=== PATIENT | female | born 1960 | race Caucasian/White ===

== ENCOUNTER → 2019-06-06 17:45 | Outpatient (CLI) | payer OTHER, SELFPAY ==
--- NOTE | ~2019-06-06 | MM_ITS ---
EXAMINATION: MM screening alan BI w john HISTORY: Screening mammogram TECHNIQUE: Craniocaudal and mediolateral oblique 3-D tomosynthesis images were obtained and synthetic 2-D images were generated. CAD analysis was submitted and interpreted. COMPARISON: 05/16/2018, 04/25/2017, 03/31/2016 bilateral digital screening mammogram examinations BREAST PARENCHYMAL COMPOSITION: There are scattered areas of fibroglandular density. FINDINGS: Bilateral benign calcifications. There is no evidence of suspicious mass, calcification, or architectural distortion to suggest malignancy in either breast. There has been no suspicious interv al change. IMPRESSION: 1. No mammographic evidence of malignancy. 2. Recommend routine screening mammography in one year. BI-RADS Category 2: Benign finding(s). Reviewed, dictated and finalized at location A. B[employer] STRAIGHTENER
== END ==
PROVIDERS: PCP Internal Medicine; Visit Provider Nurse Practitioner
DX: Z12.31 Encounter for screening mammogram for malignant neoplasm of breast (principal)
CPT/HCPCS: 77063; 77067

== ENCOUNTER 2019-12-30 05:38 | Inpatient (IN) | payer OTHER, SELFPAY ==
[2019-12-30] VITALS (34 sets, daily range): BP systolic 127–188; BP diastolic 47–92; PULSE 47–113; RESP 10–35; TEMP 35.9–36.6; O2SAT 93–100; BMI 30.9
--- NOTE | ~2019-12-30 | US_ITS ---
EXAMINATION: US right upper quadrant DATE: 12/30/2019 07:54 INDICATION: Epigastric pain TECHNIQUE: Multiple grayscale and Doppler ultrasound images of the abdomen were obtained. COMPARISON: 01/14/2009 FINDINGS: The head and and body of the pancreas are normal. The pancreatic tail is obscured by bowel gas. The liver is normal with normal echogenicity and echotexture. No surface nodularity. Normal hepa topetal flow in the main portal vein. There is mild gallbladder distention. No stones are identified. There is a questionable focal area of gallbladder wall thickening. The normal common bile duct measu res 4 mm. There was no sonographic Levin sign. IMPRESSION: 1. Gallbladder distention with possible focal area of gallbladder wall thickening of unclear signific ance. Consider nuclear hepatobiliary scan. Reviewed, dictated and finalized at location A. IMPRESSION: 1. Gallbladder distention with possible focal area of gallbladder wall thickeni ng of unclear significance. Consider nuclear hepatobiliary scan.
--- NOTE | ~2019-12-30 | NM_ITS ---
EXAMINATION: NM hepatobiliary w pharm DATE: 12/31/2019 15:00 INDICATION: Gallbladder distention COMPARISON: None. TECHNIQUE: 5.2 mCi Tc-99m mebrofenin (Choletec) was administered intravenously. Scintigraphic images of the abdomen were obtained for one hour. 2 mcg morphine (Kinevac) was administered by slow intrave nous infusion, and imaging was continued for 30 minutes. FINDINGS: There is normal clearance of radiotracer from the blood pool. There is homogeneous tracer uptake by t he liver. Activity progresses to the common bile duct and bowel with duodenal activity evident at 15 minutes. There is progressive transit of activity into the small bowel but no evident accumulation o f activity in the gallbladder following the initial hour as well as 30 minutes post morphine injectio n which would be consistent with acute cholecystitis. IMPRESSION: 1. No evident gallbladder activity consistent with acute cholecystitis. Reviewed, dictated and finalized at location B.
--- NOTE | ~2019-12-30 | XR_ITS ---
EXAMINATION: XR chest 2V DATE: 12/30/2019 06:23 INDICATION: Epigastric pain TECHNIQUE: PA and lateral views of the chest are obtained. COMPARISON: None available FINDINGS: The lungs are free of acute opacities. There is no pleural effusion or pneumothorax. The ca rdiomediastinal silhouette is normal. There is mild thoracic spondylosis. IMPRESSION: 1. No acute cardiopulmonary abnormality. Reviewed, dictated and finalized at location A.
--- NOTE | 2019-12-30 05:55 | ED.GENADULT ---
HPI - General Adult General Chief complaint: Chest Pain <Ham Wilkins MD - Last Filed: 12/30/19 06:54> Stated complaint: CP SINCE MN <Ham Wilkins MD - Last Filed: 12/30/19 06:54> Time Seen by Provider: 12/30/19 05:45 <Ham Wilkins MD - Last Filed: 12/30/19 06:54> History of Present Illness HPI narrative: Patient is a 59-year-old female who presents ER with epigastric pain. Began at midnight. It starts in her back and radiates to her epigastrium. She has had this intermittently for the last year. She had an EGD 6 months ago which did not reveal any significant source of the discomfort. Associate with some nausea and some sweats. No shortness of breath. No exertional component. Usually the pain will last until she takes a pain pill. She took a half Vicodin tonight which did not alleviate her discomfort. <Ham Wilkins MD - Last Filed: 12/30/19 06:54> Related Data Home medications: Home Medications Medication Instructions Recorded Confirmed fluticasone propionate 50 2 spray NASAL DAILY 04/16/19 05/15/19 mcg/actuation nasal spray,suspension bolnpdey-sjynv-qkrso-CF borate 1 tablet PO DAILY 05/15/19 05/15/19 [[facility]] loratadine [Claritin] 10 mg PO DAILY 05/15/19 05/15/19 <Ham Wilkins MD - Last Filed: 12/30/19 06:54> Allergies/adverse reactions: Allergies Allergy/AdvReac Type Severity Reaction Status Date / Time No Known Allergies Allergy Verified 12/30/19 05:48 <Ham Wilkins MD - Last Filed: 12/30/19 06:54> Review of Systems Review of Systems: All systems reviewed & are unremarkable except as noted in HPI and below <Ham Wilkins MD - Last Filed: 12/30/19 06:54> Constitutional: Constitutional: Denies chills, Denies fever(s) and Denies weakness <Ham Wilkins MD - Last Filed: 12/30/19 06:54> ENT: Denies nasal congestion and Denies sore throat <Ham Wilkins MD - Last Filed: 12/30/19 06:54> Cardiovascular: Cardiovascular: Denies chest pain and Denies radiating jaw, neck or arm pain <Ham Wilkins MD - Last Filed: 12/30/19 06:54> Respiratory: Respiratory: Denies cough, Denies dyspnea and Denies wheezing <Ham Wilkins MD - Last Filed: 12/30/19 06:54> Gastrointestinal: Gastrointestinal: Reports abdominal pain, Reports nausea and Denies vomiting <Ham Wilkins MD - Last Filed: 12/30/19 06:54> Genitourinary: Genitourinary: Denies hematuria, Reports nocturia and Denies dysuria <Ham Wilkins MD - Last Filed: 12/30/19 06:54> PMFSH Past Medical History Medical History: Medical History (Updated 12/30/19 @ 08:24 by Gloria Mallory MD) Adult hypothyroidism Epigastric pain Hypertension <Ham Wilkins MD - Last Filed: 12/30/19 06:54> Surgical History Surgical History: Surgical History (Updated 12/30/19 @ 05:57 by Ham Wilkins MD) History of esophagogastroduodenoscopy (EGD) <Ham Wilkins MD - Last Filed: 12/30/19 06:54> Family History Family History: Family History (Updated 03/29/15 @ 00:58 by DOCTOR UNKNOWN) Father Malignant neoplasm of prostate Other Diabetes mellitus Family history of arthritis Family history of gout Hypertension <Ham Wilkins MD - Last Filed: 12/30/19 06:54> Social History Social History: Social History Smoking status: Never smoker Alcohol intake: current <Ham Wilkins MD - Last Filed: 12/30/19 06:54> Exam Narrative: Exam Narrative: GENERAL: Uncomfortable-appearing, well-nourished, and in no acute distress. HEAD: Normocephalic, atraumatic. ENT: Mucous membranes moist. CHEST: Clear to auscultation. No respiratory distress. HEART: Bradycardic and regular. Normal peripheral pulses. ABDOMEN: Soft, mild epigastric tenderness without guarding, nondistended, normal active bowel sounds. EXTREMITIES: Normal range of motion. No edema. NEURO: Alert and oriented x3. PSYCH:
[2019-12-30] MEDS: ONDANSETRON INJ 4 MG/2 ML VIAL IV PUSH ×3 (05:57→16:46)
[2019-12-30] MEDS: MORPHINE SULFATE 4 MG/ML INJ IV PUSH ×4 (05:57→12:57)
--- NOTE | 2019-12-30 05:57 | ECG_ITS ---
Measurements Intervals [place] Rate: 57 P: 16 [place]: 161 QRS: 26 QRSD: 86 T: 42 QT: 423 QTc: 413 Interpretive Statements SINUS BRADYCARDIA BASELINE ARTIFACT- V4 BORDERLINE ECG Electronically Signed On 12-30-2019 6:51:50 CDT by Rick Bob D.O.
[2019-12-30 06:04] LABS: Basophils Absolute Auto 0.1 K/mm3 (0.0-0.1); Basophils Percent Auto 0.7 % (0.2-1.2); Eosinophils Absolute Auto 0.3 K/mm3 (0-0.3); Eosinophils Percent Auto 3.2 % (0-4.4); Hematocrit 42.1 % (37.0-47.0); Hemoglobin 14.4 g/dL (12.0-15.0); Immature Granulocyte Absolute 0.02 K/mm3 (0.00-0.031); Immature Granulocyte Percent A 0.2 % (0-0.5); Lymphocytes Absolute Auto 2.75 K/mm3 (0.9-3.2); Mean Corpuscular HGB Conc 34.2 g/dl (32-36); Mean Corpuscular Hemoglobin 31.6 pg (26-34); Mean Corpuscular Volume 92.5 fl (80-100); Mean Platelet Volume 9.6 fl (7.4-10.4); Monocytes Absolute Auto 0.6 K/mm3 (0.1-0.6); Monocytes Percent Auto 6.2 % (2.6-8.5); Neutrophils Absolute Auto 6.1 K/mm3 (1.3-6.7); Neutrophils Percent Auto 61.7 % (45.5-73.1); Platelet Count Result 244 k/mm3 (150-375); Red Blood Count 4.55 M/mm3 (4.2-5.4); Red Cell Distribution Width 11.6 % (11.5-14.5); White Blood Count 9.8 K/mm3 (4.5-10.0)
[2019-12-30 06:14] LABS: Prothrombin Time 12.5 Seconds (11.1-14.7)
[2019-12-30 06:15] LABS: Partial Thromboplastin Time 28.6 SECONDS (22.3-36.8)
[2019-12-30 06:20] LABS: Alanine Aminotransferase 29 U/L (4-35); Albumin Level 4.7 g/dL (3.5-5.1); Alkaline Phosphatase 129 U/L (38-126); Anion Gap 9 mmol/L (8-16); Aspartate Amino Transferase 28 U/L (14-36); Bilirubin,Total 0.6 mg/dL (0.2-1.3); Blood Urea Nitrogen 20 mg/dL (7-17); Calcium 9.8 mg/dL (8.4-10.2); Carbon Dioxide 27 mmol/L (22-30); Chloride 102 mmol/L (98-107); Estimated CRCL calculation 59 ml/min; Estimated Glomerular Filt Rate 57; Glucose 128 mg/dL (65-105); Lipase 145 U/L (23-300); Potassium 4.1 mmol/L (3.4-5.0); Sodium 138 mmol/L (137-145)
[2019-12-30 06:30] LABS: Troponin I < 0.012 ng/mL (0.000-0.034)
--- NOTE | 2019-12-30 07:10 | PC.NURSE ---
pt to ultrasound via stretcher
--- NOTE | 2019-12-30 08:30 | PC.NURSE ---
pain increases to 4/10
[2019-12-30 09:21] LABS: Troponin I < 0.012 ng/mL (0.000-0.034)
--- NOTE | 2019-12-30 11:28 | ADMGEN ---
This patient, Florinda Rodriguez, was admitted to IMU Room 211-01. Patient/family oriented to hospital policies and general routines including ID bracelet, bed and alarms, visiting hours, pain management, procedures, bathroom and other care routines, personal items, smoking policy, room service/diet, and visiting hours. Valuables list has been completed. Information on how to activate the Rapid Response Team has been discussed. Patient/Family are encouraged to report perceived risks to care and to ask questions if they do not understand what they are told or what they should do.
[2019-12-30 12:13] LABS: Troponin I < 0.012 ng/mL (0.000-0.034)
--- NOTE | 2019-12-30 13:14 | PM.IMHP ---
H&P: HPI History of Present Illness Date/Time: 12/30/19 13:14 Chief complaint: Chest pain/epigastric pain/gallbladder disorder Narrative: Florinda Rodriguez is a 59 year old female Who has been having epigastric pain on and off for months. The patient had an EGD May 20, 2019 which just revealed some gastritis. The patient has been on PPI since then. The patient stated that she started a dietary log to see what was not acting her gastritis and there was no correlation to the types of food that she ate. She ate a bland diet as she still had some discomfort. The patient states that she takes her PPI faithfully. The patient has no fever chills or cough. She came into the emergency room this morning with epigastric discomfort. The pain started at midnight. The pain is reproducible to the right upper quadrant. The patient takes Vicodin at home she took half a 1 last night and did not alleviate her discomfort. She had no nausea or vomiting. The pain radiates to her back. It does not radiate to her arm her neck. Troponins have been negative x2. EKG was read by Dr. Bob as sinus bradycardia baseline and v4 borderline EKG. Her pain is relieved totally with morphine. Movement makes it worse. Palpating the right upper quadrant makes it worse. She states there is no correlation tell what she eats. The patient so has discomfort at rest. The gallbladder ultrasound showed possible focal thickening of ago lateral which could indicate cholecystitis. HIDA scan has been ordered. Dr. Ferro has been consulted. He recommended surgical consult. She was given morphine and Zofran in the emergency room. Alkaline phosphatase was only mildly elevated at 129. Chest x-ray was read as nothing acute. Date of service 12/30/2019 Review of Systems Review of Systems: All systems reviewed & are unremarkable except as noted in HPI and below Constitutional: Constitutional: Reports as per HPI and Reports no additional constitutional complaints Eyes: Eyes: Reports as per HPI and Reports no additional eye complaints ENT: Reports system reviewed and no additional complaints, except as documented and Reports Normal hearing present Cardiovascular: Cardiovascular: Reports no additional cardiovascular complaints Respiratory: Respiratory: Reports no additional respiratory complaints and Reports no additional respiratory complaints Gastrointestinal: Gastrointestinal: Reports as per HPI and Reports no additional gastrointestinal complaints Musculoskeletal: Musculoskeletal: Reports no additional musculoskeletal complaints Integumentary/Breasts: Skin/Breast: Reports system reviewed and no additional complaints, except as docu and Reports as per HPI Neurologic: Reports system reviewed and no additional complaints, except as documented, Reports as per HPI and Reports Normal hearing present Psychiatric: Psychiatric: Reports no additional psychiatric complaints and Reports as per HPI Endocrine: Endocrine: Reports no additional endocrine complaints Hematologic/Lymphatic: Hematologic/Lymphatic: Reports no additional hematologic/lymphatic complaints Allergic/Immunologic: Allergic/Immunologic: Reports no additional allergic/immunologic complaints PMFSH Past Medical History Medical History (Updated 12/30/19 @ 13:28 by Ligia Zazueta NP) Adult hypothyroidism Depression with anxiety Epigastric pain Hyperlipidemia Hypertension Hypothyroidism Surgical History Surgical History (Updated 12/30/19 @ 13:21 by Ligia Zazueta NP) History of esophagogastroduodenoscopy (EGD) April 2019 shows gastritis History of partial hysterectomy S/P arthroscopic surgery of right knee Family History Family History (Updated 12/30/19 @ 13:22 by Ligia Zazueta NP) Father Malignant neoplasm of prostate Mother Hypertension Gout Other Diabetes mellitus Family history of arthritis Family history of gout Social History Social History (Updated 12/30/19 @
[2019-12-30] MEDS: SODIUM CHLORIDE 0.9% IV 1,000 ML 125 ML IV CONT ×2 (13:38→21:10)
--- NOTE | 2019-12-30 16:46 | WPDGICN ---
Assessment and Plan Assessment and plan (1) Chest pain: Qualifiers: Chest pain type: unspecified Qualified Code(s): R07.9 - Chest pain, unspecified Code(s): R07.9 - Chest pain, unspecified Status: Acute Assessment and Plan: probably non-cardiac, she has pain with some nausea, about 6 different times ultrasound showed distended GB, will get HIDA scan- ? 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 She is using ppi daily. She says since April has not had any attack but yesterday again similar problem, severe pain in back with radiation to chest/epigastric area and mid abdomen, she came to ER and received morphine because persistent pain, also had nausea. Troponin negative, liver enzymes normal, AP 129, normal CBC. Ultrasound showe Gallbladder distention with possible focal area of gallbladder wall thickening of unclear significance. She had colonoscopy 3-4 years ago, also h/o constipation using fiber gummy. No fever or chills. Review of Systems Constitutional: Constitutional: Denies headache(s) and Denies weakness Eyes: Eyes: Denies blurry vision ENT: Reports Normal hearing present, Denies headache(s) and Denies neck pain Cardiovascular: Cardiovascular: Reports chest pain and Denies dyspnea Respiratory: Respiratory: Denies dyspnea Gastrointestinal: Gastrointestinal: Reports abdominal pain and Reports nausea Genitourinary: Genitourinary: Denies dysuria Musculoskeletal: Musculoskeletal: Denies neck pain Integumentary/Breasts: Skin/Breast: Denies dry skin Neurologic: Reports Normal hearing present, Denies headache(s) and Denies weakness Psychiatric: Psychiatric: Denies anxiety Endocrine: Endocrine: Denies change in body appearance Hematologic/Lymphatic: Hematologic/Lymphatic: Denies easy bleeding Allergic/Immunologic: Allergic/Immunologic: Denies urticaria PMFSH Past Medical History Medical History (Updated 12/30/19 @ 16:51 by Chance Aleman MD) Adult hypothyroidism Depression with anxiety Epigastric pain Gallbladder anomaly Hyperlipidemia Hypertension Hypothyroidism Surgical History Surgical History (Updated 12/30/19 @ 13:21 by Ligia Zazueta NP) History of esophagogastroduodenoscopy (EGD) April 2019 shows gastritis History of partial hysterectomy S/P arthroscopic surgery of right knee Family History Family History (Updated 12/30/19 @ 13:22 by Ligia Zazueta NP) Father Malignant neoplasm of prostate Mother Hypertension Gout Other Diabetes mellitus Family history of arthritis Family history of gout Social History Social History (Updated 12/30/19 @ 13:25 by Ligia Zazueta NP) Social History: she is to [employer] 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 The patient desires to be a full code. She has 1 child a son. The patient occasionally has an alcoholic beverage on the weekends. Lifelong nonsmoker. She is currently employed. she works for [employer] for [employer] She is the sister of yrn bravo. Smoking status: Never smoker Alcohol intake: current Drinks per week: 5 Substance use: never Lorna
--- NOTE | 2019-12-30 19:24 | PM.CNGS ---
Assessment and Plan Assessment and plan (1) Epigastric pain: Code(s): R10.13 - Epigastric pain Status: Acute Assessment and Plan: pain starts in her back and then moved to the epigastrium. Certainly its severity and her family history make her a possibility of acalculous cholecystitis. Will get HIDA scan tomorrow. Repeat labs and repeat exam as well. History of Present Illness Consult details Consult date: 12/30/19 Reason for consult: abdominal pain Narrative: patient is a 59-year-old woman who came to the emergency room early this morning with Back pain that radiated to her epigastrium. She has had this in the past but really had not had any episodes for quite a while. She had an EGD by Dr. Ferro about 6 months ago which showed gastritis. She had been on proton pump inhibitors which had seemed to be effective. She also had nausea and sweats associated with the pain. It improved with narcotics but then came back. She has continued to have pain and has had morphine intermittently throughout the day. She had a gallbladder ultrasound this morning which was basically negative. There was no sonographic Levin sign. Gallbladder did appear distended and there was a possible focal area of wall thickening of unclear significance. A HIDA scan was planned but was not done as the patient was already having clear liquids. She is seen now in surgical consultation. She has a sister who had gallbladder disease and cholecystectomy. This is actually a half sister. This sister's son also had cholecystectomy. Chest x-ray was negative. Patient was admitted IMU for cardiac rule out and her troponins have been negative. Review of Systems Review of Systems: All systems reviewed & are unremarkable except as noted in HPI and below Constitutional: Constitutional: Denies chills and Denies fever(s) Cardiovascular: Cardiovascular: Denies chest pain, Denies diaphoresis, Denies dyspnea and Denies paroxysmal nocturnal dyspnea Respiratory: Respiratory: Denies chest congestion, Denies cough and Denies dyspnea Integumentary/Breasts: Skin/Breast: Denies lesions and Denies rash Neurologic: Denies Sensory deficit (Neuro) [facility] Past Medical History Medical History Adult hypothyroidism Depression with anxiety Epigastric pain Gallbladder anomaly Hyperlipidemia Hypertension Hypothyroidism Surgical History Surgical History History of esophagogastroduodenoscopy (EGD) April 2019 shows gastritis History of partial hysterectomy S/P arthroscopic surgery of right knee Family History Family History Father Malignant neoplasm of prostate Mother Hypertension Gout Other Diabetes mellitus Family history of arthritis Family history of gout Social History Social History Social History: she is to [employer] who is 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 The patient desires to be a full code. She has 1 child a son. The patient occasionally has an alcoholic beverage on the weekends. Lifelong nonsmoker. She is currently employed. she works for [employer] for [employer] She is the sister of yrn bravo. Smoking status: Never smoker Alcohol intake: current Drinks per week: 5 Substance use: never Living arrangements: with family Occupation/Education: occupation Gender identity (if verbalized by the patient): Female Spiritual care concerns: No Meds Home Medications and Allergies Home Medications Medication Instructions Recorded Confirmed Type atorvastatin 80 mg tablet 80 mg PO DAILY #90 tablet 04/01/19 12/30/19 Rx fluticasone propionate 50 2 spray NASAL DAILY 04/16/19 12/30/19 History mcg/actuation nasal spray,suspension icdnyevr-qqurc-loawf-CF borate 1 tablet
[2019-12-30] MEDS: carvediloL 6.25 MG TABLET PO (21:09)
[2019-12-30] MEDS: PANTOPRAZOLE SODIUM IV 40 MG VIAL IV PUSH (21:10)
[2019-12-31] VITALS (17 sets, daily range): BP systolic 109–142; BP diastolic 50–63; PULSE 78–100; RESP 18–20; TEMP 36.4–37.1; O2SAT 94–98
[2019-12-31 04:42] LABS: Basophils Absolute Auto 0.1 K/mm3 (0.0-0.1); Basophils Percent Auto 0.4 % (0.2-1.2); Eosinophils Percent Auto 0.1 % (0-4.4); Hematocrit 37.8 % (37.0-47.0); Immature Granulocyte Absolute 0.09 K/mm3 (0.00-0.031); Immature Granulocyte Percent A 0.6 % (0-0.5); Lymphocytes Absolute Auto 1.18 K/mm3 (0.9-3.2); Lymphocytes Percent Auto 8.5 % (18.3-44.2); Mean Corpuscular HGB Conc 34.4 g/dl (32-36); Mean Corpuscular Hemoglobin 31.7 pg (26-34); Mean Corpuscular Volume 92.2 fl (80-100); Mean Platelet Volume 8.9 fl (7.4-10.4); Monocytes Absolute Auto 0.9 K/mm3 (0.1-0.6); Monocytes Percent Auto 6.5 % (2.6-8.5); Neutrophils Absolute Auto 11.7 K/mm3 (1.3-6.7); Neutrophils Percent Auto 83.9 % (45.5-73.1); Platelet Count Result 199 k/mm3 (150-375); Red Cell Distribution Width 11.5 % (11.5-14.5); White Blood Count 13.9 K/mm3 (4.5-10.0)
[2019-12-31 05:00] LABS: Lactic Acid Reflex 0.7 mmol/L (0.7-2.1)
[2019-12-31] MEDS: SODIUM CHLORIDE 0.9% IV 1,000 ML 125 ML IV CONT ×2 (05:12→17:10)
[2019-12-31 05:22] LABS: Alanine Aminotransferase 25 U/L (4-35); Alkaline Phosphatase 105 U/L (38-126); Anion Gap 5 mmol/L (8-16); Aspartate Amino Transferase 23 U/L (14-36); Bilirubin,Total 0.7 mg/dL (0.2-1.3); Blood Urea Nitrogen 12 mg/dL (7-17); Calcium 8.7 mg/dL (8.4-10.2); Carbon Dioxide 27 mmol/L (22-30); Chloride 101 mmol/L (98-107); Estimated CRCL calculation 73 ml/min; Estimated Glomerular Filt Rate > 60; Glucose 132 mg/dL (65-105); Lipase 44 U/L (23-300); Sodium 133 mmol/L (137-145)
[2019-12-31] MEDS: LEVOTHYROXINE SODIUM 88 MCG TABLET PO (05:48)
[2019-12-31 06:52] LABS: Thyroid Stimulating Hormone Reflex 0.619 uIU/mL (0.465-4.68)
--- NOTE | 2019-12-31 08:45 | PM.PNGS ---
Progress Note: A&P Assessment and Plan (1) Epigastric pain: Code(s): R10.13 - Epigastric pain Status: Acute Assessment and Plan: Much improved. Patient to have HIDA scan today. Subjective Subjective Date/Time Seen: 12/31/19 08:45 Patient reports: feels better, pain is less ( Only a soreness in the epigastric area. No further sharp pain and no back pain) and afebrile Review of Systems Review of Systems: All systems reviewed & are unremarkable except as noted in HPI and below Constitutional: Constitutional: Denies chills, Denies fever(s), Denies headache(s) and Denies malaise Cardiovascular: Cardiovascular: Denies chest pain and Denies dyspnea Respiratory: Respiratory: Denies cough and Denies dyspnea Gastrointestinal: Gastrointestinal: Reports as per HPI and Reports abdominal pain ( much improved) Neurologic: Denies confusion and Denies headache(s) Exam Const: General: comfortable and no acute distress; No confusion Orientation/consciousness: patient oriented x3 and No confusion GI: Inspection: normal to inspection GI Palp: Yes Soft to palpation, Yes Tenderness to palpation present (GI) ( minimal epigastric tenderness now.), No Guarding due to palpation present (GI), No Hepatosplenomegaly present, No Palpable mass present and No Rebound tenderness present Auscultation: normal bowel sounds Neuro: General: patient oriented x3, no focal motor deficits and No confusion Extrem: General: no calf tenderness and no edema Psych: Affect: normal affect Insight: Good insight present (Psych) Judgement: Good judgement present (Psych) Objective Data Vital Signs Vital Signs: Vital Signs - 24 hr 12/30/19 09:24 12/30/19 09:26 12/30/19 09:30 Temperature Pulse Rate 64 57 L 62 Respiratory Rate 10 L 19 19 Blood Pressure 187/90 H Pulse Oximetry 100 99 96 12/30/19 09:32 12/30/19 09:45 12/30/19 10:10 Temperature Pulse Rate 49 L 54 L 64 Respiratory Rate 18 15 16 Blood Pressure 188/78 H 187/90 H Pulse Oximetry 97 97 100 12/30/19 10:26 12/30/19 10:30 12/30/19 12:00 Temperature 35.9 C L 35.9 C L Pulse Rate 78 78 57 L Respiratory Rate 20 20 Blood Pressure 170/50 H 170/50 H Pulse Oximetry 100 100 12/30/19 13:57 12/30/19 14:00 12/30/19 16:00 Temperature 36.6 C Pulse Rate 78 68 104 H Respiratory Rate 20 Blood Pressure 171/84 H Pulse Oximetry 100 12/30/19 16:58 12/30/19 18:00 12/30/19 19:58 Temperature 36.3 C L 36.6 C Pulse Rate 96 113 H 107 H Respiratory Rate 20 20 Blood Pressure 173/72 H 142/61 H Pulse Oximetry 98 95 12/30/19 20:00 12/30/19 21:09 12/30/19 22:00 Temperature Pulse Rate 86 111 H 100 Respiratory Rate Blood Pressure Pulse Oximetry 12/30/19 23:38 12/31/19 00:00 12/31/19 02:00 Temperature 36.4 C L Pulse Rate 96 88 84 Respiratory Rate 18 Blood Pressure 127/47 L Pulse Oximetry 96 12/31/19 04:00 12/31/19 06:00 12/31/19 08:10 Temperature 36.4 C L 37.1 C Pulse Rate 84 78 90 Respiratory Rate 20 18 Blood Pressure 137/54 L 140/57 L Pulse Oximetry 97 94 Intake/Output Intake/Output: Intake & Output 12/28/19 12/29/19 12/30/19 12/31/19 23:59 23:59 23:59 23:59 Intake Total 1000 1000 Output Total 800 Balance 1000 200 Meds/Results Medications: Active Medications Generic Name Dose Route Start Last Admin Trade Name Freq PRN Reason Stop Dose Admin Aspirin 81 mg 12/30/19 08:00 12/30/19 13:35 Aspirin Chewable PO Not Given DAILY@0800 [facility] Atorvastatin Calcium 80 mg 12/31/19 09:00 Lipitor PO DAILY [facility] Carvedilol 6.25 mg 12/30/19 21:00 12/30/19 21:09 Coreg PO 6.25 mg Q12HR CHLOE Administration Clonazepam 0.25 mg 12/30/19 13:31 Klonopin Tablet PO DAILY PRN sleep Ezetimibe 5 mg 12/31/19 09:00 Zetia PO DAILY [facility] Fluticasone Propionate 2 spray 12/31/19 09:00 Flonase 0.05% Nasal [place] NASAL DAILY [facility] Sodium Chlorid
[2019-12-31] MEDS: PANTOPRAZOLE SODIUM IV 40 MG VIAL IV PUSH ×2 (09:21→21:28)
[2019-12-31] MEDS: FLUTICASONE PROPIONATE 0.05% NA SPR 16 GM BTL (*BKC) 2 SPRAY NASAL (09:21)
[2019-12-31] MEDS: ASPIRIN 81 MG CHEWABLE TABLET PO (09:21)
[2019-12-31] MEDS: EZETIMIBE 5 MG TABLET PO (09:22)
[2019-12-31] MEDS: ATORVASTATIN 40 MG TABLET 80 MG PO (09:22)
[2019-12-31] MEDS: carvediloL 6.25 MG TABLET PO ×2 (09:22→21:28)
[2019-12-31] MEDS: LORATADINE 10 MG TABLET PO (09:22)
--- NOTE | 2019-12-31 10:59 | PM.IMPN ---
Progress Note: A&P Assessment and Plan (1) Epigastric pain: Code(s): R10.13 - Epigastric pain Status: Acute Assessment and Plan: Patient's pain began around midnight last night and was located to her back with radiation to her epigastric and right upper quadrant. On arrival, Gallbladder ultrasound suggested there could be cholecystitis. The patient was also worked up for a cardiac origin with negative troponins x3, no acute changes to her EKG suspicious for cardiac cause. GI and Surgery have been consulted. The patient had an EGD in April and it showed gastritis and the patient has been on PPI. a HIDA scan has been ordered on the patient we are pending its results. Liver enzymes are normal. Continue monitoring the patient's symptoms. GI and surgery's recommendations are greatly appreciated. (2) Depression with anxiety: Code(s): F41.8 - Other specified anxiety disorders Status: Chronic Assessment and Plan: Continue home medications. (3) Hypertension: Code(s): I10 - Essential (primary) hypertension Status: Chronic Assessment and Plan: The patient's blood pressure is highly elevated Since arrival but could be related to her discomfort. blood pressure today was 137/54. Continue with Coreg. Make adjustments if necessary. (4) Hyperlipidemia: Code(s): E78.5 - Hyperlipidemia, unspecified Status: Chronic Assessment and Plan: Continue with Zetia and Atorvastatin (5) Chronic GERD: Code(s): K21.9 - Gastro-esophageal reflux disease without esophagitis Status: Chronic Assessment and Plan: She was on p.o. Nexium at home after diagnosis of gastritis. I have placed her on IV Protonix. GI is on board for further evaluation. (6) Hypothyroidism: Code(s): E03.9 - Hypothyroidism, unspecified Status: Chronic Assessment and Plan: Continue levothyroxine TSH is normal. Time Spent With Patient Time with patient: 25 - 35 minutes Subjective Date/time seen: 12/31/19 10:59 Interval history: Date of service 12/31/2019: the patient reports feeling better today. She still has some epigastric discomfort but it is mild at this time. And she continues to have some diffuse tenderness to palpation of her abdomen. At rest she does not have much pain in all but whenever she coughs in moves around she does have discomfort. Denies any radiation of her pain to her back or right upper quadrant. Denies any chest pain, shortness of breath, fever, chills, nausea, vomiting, diarrhea, leg swelling, calf pain or any other symptoms at this time. Review of Systems Review of Systems: All systems reviewed & are unremarkable except as noted in HPI and below Exam Narrative: Exam Narrative: General: 59-year-old woman Sitting up in bed with the head elevated at 60?. Appears comfortable. In no acute distress. Skin: No jaundice or cyanosis. Good skin turgor. Neck: Full range of motion. Supple. Respiratory: Lungs are clear to auscultation bilaterally. No bony chest wall tenderness. Cardiovascular: The heart has a regular rate and rhythm without murmur. Lower extremities: No lower extremity edema. Distal pulses are easily palpated. No calf tenderness to palpation. Gastrointestinal: Slight tenderness to palpation of epigastric area. No rebound or guarding. The abdomen is soft, and nondistended with active bowel sounds. Psychiatric: Lucid and oriented. Memory intact. Neurologic: No focal deficits. Speech is clear. No facial drooping. Objective Data Vital Signs Vital Signs: Vital Signs - 24 hr 12/30/19 12:00
--- NOTE | 2019-12-31 12:58 | WPDGIPROGNO ---
Progress Note: A&P Assessment and Plan (1) Epigastric pain: Code(s): R10.13 - Epigastric pain Status: Acute Assessment and Plan: cardiac work up unrevealing, awaiting for hida scan, ? 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 Still awaiting for hida scan Review of Systems Review of Systems: All systems reviewed & are unremarkable except as noted in HPI and below Exam Const: General: comfortable and no acute distress HENMT: General nose exam: Normal nares present Eyes: General: appearance normal, both eyes and all related structures Neck: Neck: no JVD Resp: Auscultation: clear to auscultation bilaterally Cardio: Rate: regular rate Rhythm: regular rhythm GI: Inspection: non-distended GI Palp: Yes Soft to palpation Skin: General skin exam: normal color Neuro: General: gait normal Speech: normal speech Extrem: General: normal to inspection Psych: Mental Status: mental status grossly normal Objective Data Vital Signs Vital Signs: Vital Signs - 24 hr 12/30/19 13:57 12/30/19 14:00 12/30/19 16:00 Temperature 97.8 F Pulse Rate 78 68 104 H Respiratory Rate 20 Blood Pressure 171/84 H Pulse Oximetry 100 12/30/19 16:58 12/30/19 18:00 12/30/19 19:58 Temperature 97.3 F L 97.8 F Pulse Rate 96 113 H 107 H Respiratory Rate 20 20 Blood Pressure 173/72 H 142/61 H Pulse Oximetry 98 95 12/30/19 20:00 12/30/19 21:09 12/30/19 22:00 Temperature Pulse Rate 86 111 H 100 Respiratory Rate Blood Pressure Pulse Oximetry 12/30/19 23:38 12/31/19 00:00 12/31/19 02:00 Temperature 97.5 F L Pulse Rate 96 88 84 Respiratory Rate 18 Blood Pressure 127/47 L Pulse Oximetry 96 09/02/20 04:00 12/31/19 06:00 12/31/19 08:00 Temperature 97.5 F L Pulse Rate 84 78 90 Respiratory Rate 20 Blood Pressure 137/54 L Pulse Oximetry 97 12/31/19 08:10 12/31/19 09:22 12/31/19 10:00 Temperature 98.8 F Pulse Rate 90 93 89 Respiratory Rate 18 Blood Pressure 140/57 L Pulse Oximetry 94 12/31/19 12:36 Temperature 97.6 F Pulse Rate 85 Respiratory Rate 18 Blood Pressure 138/56 L Pulse Oximetry 96 Intake/Output Intake/Output: Intake & Output 12/28/19 12/29/19 12/30/19 12/31/19 23:59 23:59 23:59 23:59 Intake Total 1000 1000 Output Total 800 Balance 1000 200 Meds/Results Medications: Active Medications Generic Name Dose Route Start Last Admin Trade Name Freq PRN Reason Stop Dose Admin Aspirin 81 mg 12/30/19 08:00 12/31/19 09:21 Aspirin Chewable PO 81 mg DAILY@0800 CHLOE Administration Atorvastatin Calcium 80 mg 12/31/19 09:00 12/31/19 09:22 Lipitor PO 80 mg DAILY CHLOE Administration Carvedilol 6.25 mg 12/30/19 21:00 12/31/19 09:22 Coreg PO 6.25 mg Q12HR CHLOE Administration Clonazepam 0.25 mg 12/30/19 13:31 Klonopin Tablet PO DAILY PRN sleep Ezetimibe 5 mg 12/31/19 09:00 12/31/19 09:22 Zetia PO 5 mg DAILY CHLOE Administration Fluticasone Propionate 2 spray 12/31/19 09:00 12/31/19 09:21 Flonase 0.05% Nasal [place] NASAL 2 spray DAILY CHLOE Administration Sodium Chloride 1,000 mls @ 125 mls/hr 12/30/19 08:30 12/31/19 05:12 Normal Saline Iv IV CONT 125 mls/hr .Q8H CHLOE Administration Levothyroxine Sodium 88 mcg 12/31/19 06:30 12/31/19 05:48 Synthroid PO 88 mcg DAILY@0630 CHLOE Administration Loratadine 10 mg 12/31/19 09:00 12/31/19 09:22 Claritin PO 10 mg D
[2019-12-31] MEDS: MORPHINE SULFATE 2 MG/ML INJ IV PUSH (14:34)
--- NOTE | 2019-12-31 14:34 | PC.NURSE ---
nuc med called stated the pt was in pain and a stat order of morphine was put in by . RN went to nuc med and administered 2mg morphine IV push
[2020-01-01] VITALS (19 sets, daily range): BP systolic 128–175; BP diastolic 51–80; PULSE 66–100; RESP 12–22; TEMP 36.4–37.4; O2SAT 92–100
[2020-01-01] MEDS: SODIUM CHLORIDE 0.9% IV 1,000 ML 125 ML IV CONT (01:10)
[2020-01-01 05:42] LABS: Basophils Percent Auto 0.3 % (0.2-1.2); Eosinophils Absolute Auto 0.2 K/mm3 (0-0.3); Eosinophils Percent Auto 1.5 % (0-4.4); Hematocrit 33.1 % (37.0-47.0); Hemoglobin 11.1 g/dL (12.0-15.0); Immature Granulocyte Absolute 0.04 K/mm3 (0.00-0.031); Immature Granulocyte Percent A 0.4 % (0-0.5); Lymphocytes Absolute Auto 1.71 K/mm3 (0.9-3.2); Lymphocytes Percent Auto 17.1 % (18.3-44.2); Mean Corpuscular HGB Conc 33.5 g/dl (32-36); Mean Corpuscular Hemoglobin 31.4 pg (26-34); Mean Corpuscular Volume 93.8 fl (80-100); Mean Platelet Volume 9.5 fl (7.4-10.4); Monocytes Absolute Auto 0.8 K/mm3 (0.1-0.6); Monocytes Percent Auto 8.1 % (2.6-8.5); Neutrophils Absolute Auto 7.3 K/mm3 (1.3-6.7); Neutrophils Percent Auto 72.6 % (45.5-73.1); Platelet Count Result 181 k/mm3 (150-375); Red Blood Count 3.53 M/mm3 (4.2-5.4); Red Cell Distribution Width 11.8 % (11.5-14.5)
[2020-01-01 06:00] LABS: Alanine Aminotransferase 34 U/L (4-35); Albumin Level 3.3 g/dL (3.5-5.1); Alkaline Phosphatase 118 U/L (38-126); Anion Gap 4 mmol/L (8-16); Aspartate Amino Transferase 36 U/L (14-36); Bilirubin,Total 0.9 mg/dL (0.2-1.3); Blood Urea Nitrogen 8 mg/dL (7-17); Calcium 8.2 mg/dL (8.4-10.2); Carbon Dioxide 27 mmol/L (22-30); Chloride 105 mmol/L (98-107); Estimated CRCL calculation 83 ml/min; Estimated Glomerular Filt Rate > 60; Glucose 100 mg/dL (65-105); Potassium 3.6 mmol/L (3.4-5.0); Sodium 136 mmol/L (137-145)
[2020-01-01] MEDS: CHLORHEXIDINE GLUCONATE 4% SOL 120 ML BTL 1 APPLIC TOPICAL (06:11)
[2020-01-01] MEDS: LEVOTHYROXINE SODIUM 88 MCG TABLET PO (06:12)
[2020-01-01] MEDS: carvediloL 6.25 MG TABLET PO (08:15)
[2020-01-01] MEDS: PANTOPRAZOLE SODIUM IV 40 MG VIAL IV PUSH (08:15)
--- NOTE | 2020-01-01 09:19 | WPDANESEPP ---
Anes - Eval Pre Procedure Procedure: Operation Date: 01/01/20 10:30 Proposed Procedures p Laparoscopic Cholecystectomy - Wing Ochoa MD Date/Time: 01/01/20 09:19 Pre Op Diagnosis: Chest pain/epigastric pain/gallbladder disorder Patient Data Age: 59 Gender: F Height: 1.68 m Weight: 87 kg Last Vital Signs Temp 36.9 C 01/01/20 08:12 Pulse 88 01/01/20 08:15 Resp 12 01/01/20 08:12 BP 139/59 L 01/01/20 08:12 Pulse Ox 98 01/01/20 08:12 Allergies Allergy/AdvReac Type Severity Reaction Status Date / Time No Known Allergies Allergy Verified 12/30/19 05:48 Home Medications Medication Instructions Recorded Confirmed Type atorvastatin 80 mg tablet 80 mg PO DAILY #90 tablet 04/01/19 12/30/19 Rx fluticasone propionate 50 2 spray NASAL DAILY 04/16/19 12/30/19 History mcg/actuation nasal spray,suspension [id number]-CF borate 1 tablet PO DAILY 05/15/19 12/30/19 History [[facility] [facility]] loratadine [Claritin] 10 mg PO DAILY 05/15/19 12/30/19 History esomeprazole magnesium 40 mg 40 mg PO DAILY #90 cap 10/06/19 12/30/19 Rx capsule,delayed release levothyroxine 88 mcg tablet 88 mcg PO DAILY #90 tablet 10/06/19 12/30/19 Rx clonazepam 0.5 mg tablet 0.25 mg PO DAILY PRN #15 tablet 12/05/19 12/30/19 Rx carvedilol 6.25 mg tablet 6.25 mg PO Q12H #180 tablet 12/29/19 12/30/19 Rx ezetimibe 10 mg tablet 5 mg PO DAILY #45 tablet 12/29/19 12/30/19 Rx Laboratory Tests 12/31/19 01/01/20 01/01/20 16:12 04:48 04:48 WBC 10.0 K/mm3 K/mm3 (4.5-10.0) RBC 3.53 M/mm3 L M/mm3 (4.2-5.4) Hgb 11.1 g/dL L g/dL (12.0-15.0) Hct 33.1 % L % (37.0-47.0) MCV 93.8 fl fl (80-100) MCH 31.4 pg pg (26-34) MCHC 33.5 g/dl g/dl (32-36) RDW 11.8 % % (11.5-14.5) Plt Count 181 k/mm3 k/mm3 (150-375) MPV 9.5 fl fl (7.4-10.4) Immature Gran % (Auto) 0.4 % % (0-0.5) Neut % (Auto) 72.6 % % (45.5-73.1) Lymph % (Auto) 17.1 % L % (18.3-44.2) Dawes % (Auto) 8.1 % % (2.6-8.5) Eos % (Auto) 1.5 % % (0-4.4) Baso % (Auto) 0.3 % % (0.2-1.2) Lymph # (Auto) 1.71 K/mm3 K/mm3 (0.9-3.2) Daw[place] # (Auto) 0.8 K/mm3 H K/mm3 (0.1-0.6) Eos # (Auto) 0.2 K/mm3 K/mm3 (0-0.3) Baso # (Auto) 0.0 K/mm3 K/mm3 (0.0-0.1) Abs Immat Gran (auto) 0.04 K/mm3 H K/mm3 (0.00-0.031) Absolute Neuts (auto) 7.3 K/mm3 H K/mm3 (1.3-6.7) Absolute Nucleated RBC 0.0 K/mm3 K/mm3 (0.0-0.012) Nucleated RBC % 0.0 % % (0.0-0.2) Sodium 136 mmol/L L mmol/L (137-145) Potassium 3.6 mmol/L mmol/L (3.4-5.0) Chloride 105 mmol/L mmol/L (98-107) Carbon Dioxide 27 mmol/L mmol/L (22-30) Anion Gap 4 mmol/L L mmol/L (8-16) BUN 8 mg/dL mg/dL (7-17) Creatinine 0.70 mg/dL mg/dL (0.7-1.0) Estim Creat Clear Calc 83 ml/min ml/min Estimated GFR > 60 (59 - ) Glucose 100 mg/dL mg/dL (65-105) Calcium 8.2 mg/dL L mg/dL (8.4-10.2) Total Bilirubin 0.9 mg/dL mg/dL (0.2-1.3) AST 36 U/L U/L (14-36) ALT 34 U/L U/L (4-35) Alkaline Phosphatase 118 U/L U/L (38-126) Total Protein 6.0 g/dL L g/dL (6.3-8.2) Albumin 3.3 g/dL L g/dL (3.5-5.1) Blood Type O Positive Antibody Screen Negative ECG: SB Patient hx anesthesia problems: none Family hx anesthesia problems: none [facility] Past Medical History Medical History Adult hypothyroidism Depression with anxiety Epigastric pain Gallbladder anomaly Hyperlipidemia Hypertension Hypothyroidism Surgical History Surgical History Hist
--- NOTE | 2020-01-01 09:44 | PM.IMPN ---
Progress Note: A&P Assessment and Plan (1) Acute cholecystitis: Code(s): K81.0 - Acute cholecystitis Status: Acute Assessment and Plan: Patient's pain began around midnight last night and was located to her back with radiation to her epigastric and right upper quadrant. On arrival, Gallbladder ultrasound suggested there could be cholecystitis. The patient was also worked up for a cardiac origin with negative troponins x3, no acute changes to her EKG suspicious for cardiac cause. Liver enzymes were normal. GI and Surgery have been consulted. The patient had an EGD in April and it showed gastritis and the patient has been on PPI. HIDA scan was completed Will and showed she has acute cholecystitis Surgery, Dr. brambila will take her to surgery today to remove gallbladder. Continue monitoring the patient's symptoms. GI and surgery's recommendations are greatly appreciated. (2) Depression with anxiety: Code(s): F41.8 - Other specified anxiety disorders Status: Chronic Assessment and Plan: Continue home medications. (3) Hypertension: Code(s): I10 - Essential (primary) hypertension Status: Chronic Assessment and Plan: The patient's blood pressure is highly elevated Since arrival but could be related to her discomfort. blood pressure today was 128/61. Stable. Continue with Coreg. Make adjustments if necessary. (4) Hyperlipidemia: Code(s): E78.5 - Hyperlipidemia, unspecified Status: Chronic Assessment and Plan: Continue with Zetia and Atorvastatin (5) Chronic GERD: Code(s): K21.9 - Gastro-esophageal reflux disease without esophagitis Status: Chronic Assessment and Plan: She was on p.o. Nexium at home after diagnosis of gastritis. I have placed her on IV Protonix. GI is on board for further evaluation. (6) Hypothyroidism: Code(s): E03.9 - Hypothyroidism, unspecified Status: Chronic Assessment and Plan: Continue levothyroxine TSH is normal. Time Spent With Patient Time with patient: 25 - 35 minutes Subjective Date/time seen: 01/01/20 09:44 Interval history: Date of service 01/01/2020: Patient reports feeling well today. She ate a low-fat diet last night without any nausea or vomiting issues. She actually states eating helped her abdominal pain. She is rated go for surgery to have her gallbladder removed. Denies any chest pain, shortness of breath, fever, chills, nausea, vomiting, diarrhea, leg swelling, calf pain or any other symptoms at this time. Review of Systems Review of Systems: All systems reviewed & are unremarkable except as noted in HPI and below Exam Narrative: Exam Narrative: General: 59-year-old woman Sitting up in bed with the head elevated at 60? watching TV. Appears comfortable. In no acute distress. Skin: No jaundice or cyanosis. Good skin turgor. Neck: Full range of motion. Supple. Respiratory: Lungs are clear to auscultation bilaterally. No bony chest wall tenderness. Cardiovascular: The heart has a regular rate and rhythm without murmur. Lower extremities: No lower extremity edema. Distal pulses are easily palpated. No calf tenderness to palpation. Gastrointestinal: No tenderness to palpation of abdomen. No rebound or guarding. The abdomen is soft, and nondistended with active bowel sounds. Psychiatric: Lucid and oriented. Memory intact. Neurologic: No focal deficits. Speech is clear. No facial drooping. Objective Data Vital Signs Vital Signs: Vital Signs - 24 hr 12/31/19 10:00 12/31/19 12:00 12/31/19 12:36 Temperature 97.6 F Pulse Rate 89 8
[2020-01-01] MEDS: LACTATED RINGERS 1,000 ML 30 ML IV CONT (09:45)
--- NOTE | 2020-01-01 10:25 | P.PNAN_ITS ---
Anes - Eval Final PreProcedure Day of Procedure 01/01/20 10:25 Patient weight: obese Heart: regular rate and rhythm Lungs: clear to auscultation Airway: Mallampati scale class II Neurological: alert and oriented Last oral intake: >/= 8 hours ASA classification: III Emergent: no Anesthetic plan: proceed Anesthesia type and monitoring: general ETT and standard monitoring Informed Consent: The patient's anesthetic plan and its attendant risks and be nefits were discussed with the patient/family/POA. Questions were solicited and answers provided to the satisfaction of the patient/family/POA.
[2020-01-01] MEDS: ceFAZolin 2 GM/D5W 50 ML 2 GM/50 ML BAG IVPB (10:33)
[2020-01-01] MEDS: BUPIVACAINE/EPINEPHRINE 0.5% 30 ML VIAL INFILTRATE (10:58)
--- NOTE | 2020-01-01 11:58 | PM.PROC ---
Procedure Note - Detailed Date of procedure: 01/01/20 Pre-op diagnosis: acute cholecystitis acalculous acute cholecystitis Post-op diagnosis: same Procedure performed: laparoscopic cholecystectomy Description of procedure: The patient was taken to surgery and induced into general anesthesia. The abdomen was prepped and draped. Trocars were placed in the usual fashion using 0.5% Marcaine with epinephrine and applied Medical optical trocars. A 5 millimeter camera was used. It was immediately evident that the gallbladder was acutely inflamed. The wall was thickened and edematous. It was erythematous in color. It was quite distended. The gallbladder was decompressed with a laparoscopic aspirator. The gallbladder was retracted anterosuperiorly. Adhesions to the gallbladder were taken down so that the cholecystohepatic triangle was exposed. Traction was placed on the infundibulum. Dissection was carried out in the area of the triangle of [place]. It was quite edematous and very vascular. Cautery was required. Most of the blood loss occurred during this dissection. Eventually, the cystic duct and cystic artery were dissected out very clearly. The gallbladder was dissected off the liver at its lower 3rd. Critical view was achieved. We securely clipped and divided the cystic duct and cystic artery. The gallbladder was then further retracted so that the peritoneal attachments to the liver could be divided. This was also difficult due to the acute inflammation and edema. Nonetheless, it was able to be completed without entering the gallbladder and without creating raw liver surface. Once the gallbladder was freed entirely, it was placed in an Endo-Catch bag and retrieved through the 10 11 epigastric trocar site. The epigastric trocar incision had to be dilated to accommodate the thick-walled edematous gallbladder. Eventually the gallbladder was extricated. The epigastric trocar was then replaced. A towel clip was used to occlude the site so that we could reinsufflate. We reviewed the right upper quadrant. It was irrigated and suctioned. All looked good with no evidence of bleeding or bile leakage. We evacuated CO2 and removed the trocar sleeves. The fascia at the epigastric trocar site was closed with 0 Vicryl suture. Skin wounds were closed with subcuticular 4 O Monocryl skin suture. The wounds were dressed with Exofin surgical adhesive. Patient was awakened and taken to recovery in good condition. Sponge and needle counts were correct x2. Anesthesia: GETA and local (0.5% Marcaine with epinephrine) Surgeon: Wing Ochoa MD Electronic Prepress Operator: Tristan HARPER Estimated blood loss (mL): 30 Drains: No Packing: No Pathology: yes (Gallbladder) Complications: None Condition: stable Disposition: PACU Findings: Severe acute inflammation, thickened gallbladder wall, no gallstones noted. No biliary ductal dilatation, no liver abnormalities.
[2020-01-01] MEDS: ASPIRIN 81 MG CHEWABLE TABLET PO (13:35)
[2020-01-01] MEDS: FLUTICASONE PROPIONATE 0.05% NA SPR 16 GM BTL (*BKC) 2 SPRAY NASAL (13:35)
[2020-01-01] MEDS: ATORVASTATIN 40 MG TABLET 80 MG PO (13:35)
[2020-01-01] MEDS: LORATADINE 10 MG TABLET PO (13:36)
[2020-01-01] MEDS: EZETIMIBE 5 MG TABLET PO (13:36)
[2020-01-01] MEDS: LACTATED RINGERS 1,000 ML 100 ML IV CONT (13:44)
--- NOTE | 2020-01-01 16:15 | PM.DS ---
DS: Admitting Diagnosis Admitting Diagnosis Admitting Diagnosis: acute cholecystitis DS: Discharge Diagnosis Discharge Diagnosis (1) Acute cholecystitis: Code(s): K81.0 - Acute cholecystitis Status: Acute Assessment and Plan: Patient's pain began around midnight last night and was located to her back with radiation to her epigastric and right upper quadrant. On arrival, Gallbladder ultrasound suggested there could be cholecystitis. The patient was also worked up for a cardiac origin with negative troponins x3, no acute changes to her EKG suspicious for cardiac cause. Liver enzymes were normal. GI and Surgery have been consulted. The patient had an EGD in April and it showed gastritis and the patient has been on PPI. HIDA scan was completed Will and showed she has acute cholecystitis Dr. brambila took the patient to surgery today for a laparoscopic cholecystectomy Surgery feels the patient can be discharged home and will discharge her on oral medications. Patient is feeling well, walking without any issues and eating and drinking well. She feels common with discharge home at this time. (2) Depression with anxiety: Code(s): F41.8 - Other specified anxiety disorders Status: Chronic Assessment and Plan: Continue home medications. (3) Hypertension: Code(s): I10 - Essential (primary) hypertension Status: Chronic Assessment and Plan: The patient's blood pressure is highly elevated Since arrival but could be related to her discomfort. blood pressure today was 128/61. Stable. (4) Hyperlipidemia: Code(s): E78.5 - Hyperlipidemia, unspecified Status: Chronic Assessment and Plan: Continue with Zetia and Atorvastatin (5) Chronic GERD: Code(s): K21.9 - Gastro-esophageal reflux disease without esophagitis Status: Chronic Assessment and Plan: She was on p.o. Nexium at home after diagnosis of gastritis. I have placed her on IV Protonix. (6) Hypothyroidism: Code(s): E03.9 - Hypothyroidism, unspecified Status: Chronic Assessment and Plan: Continue levothyroxine TSH is normal. DS: Summary Hospital Course Reason for hospitalization: Patient is a 59-year-old woman with a history of gastritis which was diagnosed on EGD in April 2019, who presented emergency room back pain which radiated to her epigastric and right upper quadrant area around midnight prior to arrival. Initial vitals showed the patient was afebrile, blood pressure 169/92, heart rate 71, respiratory rate 21, oxygen saturation 97% on room air. Initial labs showed normal CBC with differential, normal coag panel, normal CMP other than elevated alk-phos at 1:29 a.m., negative troponins x3. Chest x-ray Showed no acute cardiopulmonary disease. Right upper quadrant ultrasound showed Gallbladder distention with possible focal area of gallbladder wall thickening of unclear significance. Consider nuclear hepatobiliary scan. She was admitted into the hospital for IV pain control, placed NPO, with consultation to GI and surgery. HIDA scan was completed showing no evidence gallbladder activity which is consistent with acute cholecystitis. Patient went to surgery on 01/01/2020 for laparoscopic cholecystectomy by Dr. Brambila. Surgery went well and she is feeling well after her with getting around and eating. She is stable from surgery and my perspective to be discharged home to continue oral antibiotics, oral pain medications and follow-up in their office in 2 weeks. Patient understands and agrees the plan all questions answered.
== END 2020-01-01 17:31 | disposition home or self-care (01) | DRG 419 ==
LOC: ANHED 08:24 → ANHIMU 09:15
PROVIDERS: Emergency Medicine; Nurse Practitioner; Physician Assistant; Admitting Provider Family Medicine; Emergency Provider Emergency Medicine; PCP Internal Medicine; Visit Provider Surgery
PROC: 0FT44ZZ Resection of Gallbladder, Percutaneous Endoscopic Approach (ICD-10-PCS; CPT 47562; principal; 2020-01-01 10:30)
DX: K81.0 Acute cholecystitis (principal); F41.8 Other specified anxiety disorders; E78.5 Hyperlipidemia, unspecified; I10 Essential (primary) hypertension; K21.9 Gastro-esophageal reflux disease without esophagitis; E03.9 Hypothyroidism, unspecified; E66.9 Obesity, unspecified; Z68.31 Body mass index [BMI] 31.0-31.9, adult; Z87.19 Personal history of other diseases of the digestive system
CPT/HCPCS: 36415; 71046; 76705; 78227; 80053; 83605; 83690; 84443; 84484; 85025; 85610; 85730; 86850; 86900; 86901; 88304; 93005; 96361; 96374; 96375; 96376; 99285; A9270; A9537; C1713; C9113; G0378; J0690; J1100; J2001; J2250; J2270; J2405; J2704; J2710; J3010; J7030; J7120

== ENCOUNTER → 2020-07-16 17:36 | Outpatient (CLI) | payer OTHER, SELFPAY ==
--- NOTE | ~2020-07-16 | MM_ITS ---
EXAMINATION: MM screening alan BI w john HISTORY: Screening mammogram TECHNIQUE: Craniocaudal and mediolateral oblique 3-D tomosynthesis images were obtained and synthetic 2-D images were generated. CAD analysis was submitted and interpreted. COMPARISON: 06/06/2019, 05/16/2018, 04/25/2017 bilateral digital screening mammogram examinations BREAST PARENCHYMAL COMPOSITION: There are scattered areas of fibroglandular density. FINDINGS: Bilateral benign calcifications. There is no evidence of suspicious mass, calcification, or architectural distortion to suggest malignancy in either breast. There has been no suspicious interv al change. IMPRESSION: 1. No mammographic evidence of malignancy. 2. Recommend routine screening mammography in one year. BI-RADS Category 2: Benign finding(s). Reviewed, dictated and finalized at location A.
== END ==
PROVIDERS: Visit Provider Nurse Practitioner
DX: Z12.31 Encounter for screening mammogram for malignant neoplasm of breast (principal)
CPT/HCPCS: 77063; 77067

== ENCOUNTER 2021-08-31 02:04 | Day surgery (SDC) | payer OTHER, SELFPAY ==
[2021-08-29 15:22] VITALS: BMI 28.3
--- NOTE | 2021-08-29 15:23 | PC.NURSE ---
Report to the Outpatient Waiting Room, entrance under the green pavilion located off [facility], at time 1130 ____ on date _08/31/21 . OR Time: 1330___. - You and your visitor will be asked a series of questions to screen for COVID 19 for your protection. - Only one visitor is allowed at this time. - The patient visitor is requested to leave or wait in car when not with patient. - A mask is required within the hospital. Patients may have clear liquids (water, carbonated beverages, clear teas, apple juice) until 3 hours prior to surgery with a maximum of 20 ounces. - No food from midnight until time of surgery - Infants may have breast milk until 4 hours before surgery, infant formula 6 hours prior to surgery. - Children will be allowed to drink immediately following surgery. If applicable, please bring a bottle or sippy cup to assist with drinking. Juice, water, soda, and popsicles are readily available. For infants on formula, please bring formula the day of surgery. Pacifiers are allowed. Take the following medications with a SIP of water the morning of surgery: CARVEDILOL, LEVOTHYROXINE, SERTRALINE Medications to discontinue per physician VITAMINS Date to take last dose____08/29/2021 Please no make-up, nail english, hairspray, perfume, deodorant, or body powder the day of surgery. No jewelry (including any body piercings) or valuables the day of surgery, leave them at home. Please take a shower or bath the night before, or the morning of, surgery with an antibacterial soap. Wear comfortable, loose fitting clothing. Children are encouraged to wear pajamas. - Jewelry must be removed prior to entering the operating room. Rings and piercings that are not removed may be cut off. - The hospital will not accept responsibility for valuables. - Please leave all valuables, including medications, at home the day of surgery. If you are going home after surgery, a licensed marine engine driver must drive you home. - NO public transportation without another adult. - We recommend that an adult stay with you for 24 hours following discharge. - We also recommend that you do not drive, make important decision, drink alcoholic beverages, or take any drugs that were not prescribed by your health care provider for at least 24 hours after your discharge time. For Pediatric surgeries, we recommend two adults accompany the child home (only one inside the building at this time). Follow any additional instructions given to you from your surgeon. If you or anyone in your household have experienced Covid symptoms in the past week, please notify your surgeon or the nurse liaison at the phone number below for possible testing. Telephone instructions given to __PATIENT and asked if any additional questions and then verbalized understanding. Patient advised to call surgeon office or pre surgery nurse liaison [phone] if any additional questions.
[2021-08-31] VITALS (9 sets, daily range): BP systolic 125–183; BP diastolic 59–112; PULSE 65–100; RESP 12–16; TEMP 36.3–36.9; O2SAT 94–100
--- NOTE | 2021-08-31 07:14 | WPDHPUPDATE1 ---
History and Physical Update Update Date/Time: 08/31/21 07:14 History and Physical has been reviewed, including an updated exam of the patient. There are NO changes in the patient's condition. Risks, benefits, and alternatives have been discussed and questions answered. Patient agrees to proceed with procedure.
--- NOTE | 2021-08-31 07:15 | WPDHPUPDATE1 ---
History and Physical Update Update Date/Time: 08/31/21 07:15 History and Physical has been reviewed, including an updated exam of the patient. There are NO changes in the patient's condition. Risks, benefits, and alternatives have been discussed and questions answered. Patient agrees to proceed with procedure.
--- NOTE | 2021-08-31 10:41 | PM.IMHP ---
H&P: HPI History of Present Illness Date/Time: 08/31/21 10:41 Knee Pain Pt presents with Left knee pain that has been present since 12/22/20 (>4mo) when she slipped on a puddle of oil, at work. Her left foot slipped, as she was twisting, and caused the knee to twist. Her pain is localized to the anteromedial and anterolateral knee. She also notes suprapatellar pain and occasional posterior. She finds it difficult to complete activities that require squatting/flexion. She takes Advil, occasionally, for her pain. She is also wearing an OTC brace. MRI completed 04/12/21. Pt is here for surgical discussion. Pt is [employer]. Hx Right knee arthroscopy 2013 Involved knee: left Onset: sudden Date of injury: 12/22/20 Setting of injury: work Reported: Yes Location of pain: medial, lateral, anterior, posterior, superior and diffuse Character: stabbing and shooting Timing of pain: constant Exacerbated by: direct pressure, weight bearing, kneeling, squatting, rotational activities and prolonged activity Relieved by: brace, elevation, ice, rest and NSAIDs Associated symptoms: Reports swelling, clicking, catching, instability and stiffness History of occupational/recreational activity with repetitive motion: No History of prior knee injury: No Chief Complaint: LEFT KNEE PAIN, MEDIAL MENISCUS TEAR Review of Systems Review of Systems: All systems reviewed & are unremarkable except as noted in HPI and below Eyes: Eyes: Reports no additional eye complaints ENT: Reports system reviewed and no additional complaints, except as documented Cardiovascular: Cardiovascular: Reports no additional cardiovascular complaints, Denies chest pain and Denies chest pain with activity Respiratory: Respiratory: Reports no additional respiratory complaints, Denies cough and Denies dyspnea on exertion Gastrointestinal: Gastrointestinal: Reports no additional gastrointestinal complaints Genitourinary: Genitourinary: Reports no additional female genitourinary complaints Musculoskeletal: Musculoskeletal: Reports as per HPI Integumentary/Breasts: Skin/Breast: Reports system reviewed and no additional complaints, except as docu Neurologic: Reports system reviewed and no additional complaints, except as documented Psychiatric: Psychiatric: Reports no additional psychiatric complaints Endocrine: Endocrine: Reports no additional endocrine complaints Hematologic/Lymphatic: Hematologic/Lymphatic: Reports no additional hematologic/lymphatic complaints Allergic/Immunologic: Allergic/Immunologic: Reports no additional allergic/immunologic complaints [facility] Past Medical History Medical History Adult hypothyroidism Depression with anxiety Epigastric pain Gallbladder anomaly Hyperlipidemia Hypertension Hypothyroidism Torn meniscus Surgical History Surgical History History of esophagogastroduodenoscopy (EGD) April 2019 shows gastritis History of partial hysterectomy Hx laparoscopic cholecystectomy S/P arthroscopic surgery of right knee Family History Family History Father Malignant neoplasm of prostate Mother Hypertension Gout Other Diabetes mellitus Family history of arthritis Family history of gout Social History Social History Social History: The patient desires to be a full code. She has 1 child a son. The patient occasionally has an alcoholic beverage on the weekends. Lifelong nonsmoker. She is currently employed. she works for [employer] for [employer]. Smoking status: Never smoker Second hand tobacco smoke exposure: No Alcohol intake: current Drinks per week: 5 Alcohol use details: social Substance use: never Living arrangements: with family Gender identity (if verbalized by the patient): Fema
--- NOTE | 2021-08-31 10:56 | ECG_ITS ---
Measurements Intervals [place] Rate: 67 P: 18 [place]: 148 QRS: 19 QRSD: 97 T: 29 QT: 381 QTc: 405 Interpretive Statements SINUS RHYTHM NORMAL ECG Electronically Signed On 08-31-2021 12:06:29 CDT by Rick Bob D.O.
[2021-08-31] MEDS: ACETAMINOPHEN 500 MG TABLET 1000 MG PO (12:06)
[2021-08-31] MEDS: CELECOXIB 200 MG CAPSULE PO (12:06)
[2021-08-31] MEDS: LACTATED RINGERS 1,000 ML 30 ML IV CONT (12:20)
[2021-08-31 12:23] LABS: Glucose Point of Care 112 mg/dl (65-105)
--- NOTE | 2021-08-31 12:33 | WPDANESEPPF ---
Anes - Initial Pre Proc Eval Procedure: Operation Date: 08/31/21 13:30 Proposed Procedures p Left Knee Arthroscopy - Fareed Gonzales MD Date/Time: 08/31/21 12:33 Surgeon: Fareed Gonzales MD Pre Op Diagnosis: left knee medial meniscus tear Patient Data Age: 61 Gender: F Height: 1.7 m Weight: 84.8 kg Last Vital Signs Temp 36.9 C 08/31/21 12:23 Pulse 73 08/31/21 12:23 Resp 16 08/31/21 12:23 BP 125/81 08/31/21 12:23 Pulse Ox 97 08/31/21 12:23 Allergies Allergy/AdvReac Type Severity Reaction Status Date / Time No Known Allergies Allergy Verified 08/31/21 12:00 Home Medications Medication Instructions Recorded Confirmed Type Move Free Joint Health 1 tablet PO DAILY 05/15/19 08/31/21 History cholecalciferol (vitamin D3) 250 250 mcg PO DAILY 09/29/20 08/31/21 History mcg (10,000 unit) capsule carvedilol 6.25 mg tablet 6.25 mg PO Q12H #180 tablet 06/21/21 08/31/21 Rx metformin 500 mg tablet 500 mg PO BID #60 tablet 06/21/21 08/31/21 Rx oxymetazoline 0.05 % nasal spray 2 spray INTRANASAL Q12H PRN 06/21/21 08/31/21 History lisinopril 20 mg tablet 20 mg PO DAILY #90 tablet 08/22/21 08/31/21 Rx clonazepam 0.5 mg tablet 0.25 mg PO DAILY PRN #15 tablet 08/29/21 08/31/21 Rx esomeprazole magnesium 40 mg PO DAILY 08/29/21 08/31/21 History ezetimibe 5 mg PO DAILY 08/29/21 08/31/21 History levothyroxine 88 mcg PO DAILY 08/29/21 08/31/21 History rosuvastatin [Crestor] 40 mg PO HS 08/29/21 08/31/21 History sertraline 25 mg PO DAILY 08/29/21 08/31/21 History hydrocodone-acetaminophen 1 tablet PO Q12H PRN #20 tablet 08/31/21 Rx Laboratory Tests 08/31/21 08/31/21 12:08 12:21 Sodium Pending Potassium Pending Chloride Pending Carbon Dioxide Pending Anion Gap Pending BUN Pending Creatinine Pending Estim Creat Clear Calc Pending Estimated GFR Pending Glucose Pending POC Capillary Glucose 112 mg/dl H mg/dl (65-105) Calcium Pending Patient hx anesthesia problems: none Family hx anesthesia problems: none Results Review: All pre-operative results and documents have been reviewed as part of the pre-operative evaluation. [facility] Past Medical History Medical History (Updated 08/31/21 @ 12:17 by Sathish Samuel DO) Adult hypothyroidism Depression with anxiety Epigastric pain Gallbladder anomaly Hyperlipidemia Hypertension Hypothyroidism Pre-diabetes Torn meniscus Surgical History Surgical History History of esophagogastroduodenoscopy (EGD) April 2019 shows gastritis History of partial hysterectomy Hx laparoscopic cholecystectomy S/P arthroscopic surgery of right knee Family History Family History Father Malignant neoplasm of prostate Mother Hypertension Gout Other Diabetes mellitus Family history of arthritis Family history of gout Social History Social History Social History: The patient desires to be a full code. She has 1 child a son. The patient occasionally has an alcoholic beverage on the weekends. Lifelong nonsmoker. She is currently employed. she works for [email or web address] for [employer]. Smoking status: Never smoker Second hand tobacco smoke exposure: No Alcohol intake: current Drinks per week: 5 Alcohol use details: social Substance use: never Living arrangements: with family Gender identity (if verbalized by the patient): Female Spiritual care concerns: No Anes - Eval Final PreProcedure Day of Procedure 08/31/21 12:33 Patient weight: overweight Heart: regular rate and rhythm Lungs: clear to auscultation and normal air movement Airway: Mallampati scale class II Neurological: alert and oriented Last oral intake: >/= 8 hours ASA classifi
[2021-08-31 12:35] LABS: Anion Gap 7 mmol/L (8-16); Blood Urea Nitrogen 21 mg/dL (7-17); Calcium 9.2 mg/dL (8.4-10.2); Carbon Dioxide 25 mmol/L (22-30); Chloride 105 mmol/L (98-107); Estimated CRCL calculation 72 ml/min; Estimated Glomerular Filt Rate > 60; Glucose 116 mg/dL (65-110); Potassium 4.5 mmol/L (3.4-5.0); Sodium 137 mmol/L (137-145)
[2021-08-31] MEDS: ceFAZolin 2 GM/D5W 50 ML 2 GM/50 ML BAG IVPB (12:45)
[2021-08-31] MEDS: KETOROLAC 30 MG/ML VIAL (*BKC) IV PUSH (13:32)
[2021-08-31] MEDS: BUPIVACAINE HCL 0.5% PF 30 ML VIAL INFILTRATE (13:56)
[2021-08-31 14:16] LABS: Glucose Point of Care 163 mg/dl (65-105)
[2021-08-31] MEDS: fentaNYL CITRATE INJ (*CRX) 100 MCG/2 ML VIAL 25 MCG IV PUSH ×4 (14:21→14:40)
[2021-08-31] MEDS: oxyCODONE HCL (*CRX) 5 MG TAB IR PO (15:14)
--- NOTE | 2021-09-13 13:53 | P.OP_ITS ---
Procedure Note - Detailed Date of Procedure 09/13/21 Pre-op Diagnosis left knee medial meniscus tear Post-op Diagnosis Other (LEFT MEDIAL AND LATERAL MENISCUS TEAR) Procedure Performed LEFT KNEE SCOPE Surgeon Fareed Gonzales MD Anesthesia General Description of Procedure PATIENT WAS TAKEN TO THE OR. THE LEFT LEG WAS PREPPED AND DRAPED STERILE. TROCARS WERE PLACED IN THE USUAL FASHION. CAMERA WAS INTRODUCED. THERE WAS CHONDROMALACIA TO THE PATELLA FEMORAL JOINT. THERE WAS A LOT OF SYNOVITIS IN ALL COMPARTMENTS. THE MEDIAL COMPARTMENT SHOWED CHONDROMALACIA TO THE MEDIAL FEMORAL CONDYLE. A SHAVER WAS USED TO PREFORM A CHONDROPLASTY. THERE WAS A SMALL COMPLEX MEDIAL MENISCUS TEAR. THE TEAR WAS RESECTED WITH A BITER AND A SHAVER DOWN TO A SMOOTH BASE. ABOUT 20% OF THE MENISCUS WAS REMOVED. THE ACL WAS INTACT. THE LATERAL MENISCUS WAS NOT TORN. THE LAT COMPARTMENT HAD MINIMAL CHONDROMALACIA AT THE LATERAL PLATEAU. CHONDROPLASTY WAS PREFORMED. A SYNOVECTOMY WAS PREFORMED WELL. THE PATELLO FEMORAL JOINT UNDERWENT CHONDROPLASTY. THERE WAS GRADE 3 CHONDROMALACIA AND FULL THICKNESS CARTILAGE L OSS IN A LARGE AREA OF THE TROCHLEA AND PART OF THE PATELLA. SYNOVECTOMY WAS PREFORMED IN THE SUPERIOR MEDIAL COMPARTMENT. THE WOUNDS WERE APPROXIMATED WITH 4.0 NYLON. STERILE DRESSING WAS APPLIED. PATIENT WAS EXTUBATED. Estimated Blood Loss -5.0 Complications No immediate complications Condition Stable Disposition PACU
== END 2021-08-31 16:20 | disposition home or self-care (01) ==
PROVIDERS: PCP Internal Medicine; Visit Provider Orthopaedic Surgery
PROC: (CPT 29870; principal; 2021-08-31 13:30)
DX: S83.232A Complex tear of medial meniscus, current injury, left knee, initial encounter (principal); M22.42 Chondromalacia patellae, left knee; M65.862 Other synovitis and tenosynovitis, left lower leg; W18.49XA Other slipping, tripping and stumbling without falling, initial encounter; E03.9 Hypothyroidism, unspecified; F41.8 Other specified anxiety disorders; E78.5 Hyperlipidemia, unspecified; I10 Essential (primary) hypertension
CPT/HCPCS: 29881; 36415; 80048; 82948; 93005; A9270; J0690; J1100; J1885; J2250; J2405; J2704; J3010; J7120

== ENCOUNTER → 2021-09-09 16:52 | Outpatient (CLI) | payer OTHER, SELFPAY ==
--- NOTE | ~2021-09-09 | MM_ITS ---
EXAMINATION: MM screening alan BI w john HISTORY: Screening mammogram TECHNIQUE: Craniocaudal and mediolateral oblique 3-D tomosynthesis images were obtained and synthetic 2-D images were generated. CAD analysis was submitted and interpreted. COMPARISON: 07/16/2020, 06/06/2019, 05/16/2018 bilateral screening mammogram examinations BREAST PARENCHYMAL COMPOSITION: There are scattered areas of fibroglandular density. FINDINGS: There are scattered bilateral benign calcifications. There is no evidence of suspicious mas s, calcification, or architectural distortion to suggest malignancy in either breast. There has been no suspicious interval change. IMPRESSION: 1. No mammographic evidence of malignancy. 2. Recommend routine screening mammography in one year. BI-RADS Category 2: Benign finding(s). Reviewed, dictated and finalized at location A.
== END ==
PROVIDERS: PCP Internal Medicine; Visit Provider Nurse Practitioner
DX: Z12.31 Encounter for screening mammogram for malignant neoplasm of breast (principal)
CPT/HCPCS: 77063; 77067

== ENCOUNTER → 2022-03-13 13:09 | Outpatient (CLI) | payer OTHER, SELFPAY ==
--- NOTE | ~2022-03-13 | DEXA_ITS ---
Bone Density Report Name: ELMA MANZO Age: 61 Sex: Female Ethnicity: White Date of : 1960 Indication: postmenopausal; screening for osteoporosis; height loss; hysterectomy; Referring Provider: TIKI, UZMA Study: Bone densitometry was performed. Exam Date: March 13, 2022 Accession number: [id number] Bone Density: Region BMD T-score Z-score Classification AP Spine (L1-L4) 0.988 -0.5 1.0 Normal Femoral Neck (Left) 0.643 -1.9 -0.5 Osteopenia Total Hip (Left) 0.853 -0.7 0.3 Normal Femoral Neck (Right) 0.654 -1.8 -0.4 Osteopenia Total Hip (Right) 0.849 -0.8 0.3 Normal Total Hip Mean 0.851 -0.8 0.3 Normal World Health Organization criteria for BMD impression classify patients as: Normal (T-score at or above -1.0), Osteopenia (T-score between -1.0 and -2.5), or Osteoporosis (T-score at or below -2.5). 10-year Fracture Risk(1): Major Osteoporotic Fracture 9.1% Hip Fracture 1.0% Reported Risk Factors: [place] (), Neck BMD=0.643, BMI=30.1 (1) FRAX(R) Version 3.08. Fracture probability calculated for an untreated patient. Fracture probability may be lower if the patient has received treatment. Previous Exams: Region Exam Age BMD T-score BMD Change BMD Change Date g/cm2 vs Baseline vs Previous AP Spine(L1-L4) 03/13/2022 61 0.988 -0.5 -0.074* -0.052* 05/16/2018 57 1.039 -0.1 -0.023 -0.023 03/05/2015 54 1.062 0.1 Total Hip(Left) 03/13/2022 61 0.853 -0.7 -0.099* -0.078* 05/16/2018 57 0.931 -0.1 -0.021 -0.021 03/05/2015 54 0.952 0.1 Total Hip(Right) 03/13/2022 61 0.849 -0.8 -0.065* -0.044* 05/16/2018 57 0.893 -0.4 -0.021 -0.021 03/05/2015 54 0.914 -0.2 *Denotes significance at 95% confidence level, LSC for AP Spine = 0.022 g/cm2, LSC for Total Hip = 0.027 g/cm2 Clinical Information Provided by Patient: Has used the following medications: Vitamin D Has the following medical conditions: Hysterectomy Patient maximum height was 67 Menopause Age: 34 Onset of menses at age 16 Number of children 1 Impression: The patient has low bone mass, based on the Left Femoral Neck T-score. The patient has an estimated ten-year risk of hip fracture of 1% and an estimated ten-year risk of major fracture of 9.1%, based on the WHO FRAX algorithm. The BMD for the AP Spine(L1-L4) decreased,
== END ==
PROVIDERS: PCP Internal Medicine; Visit Provider Nurse Practitioner
DX: Z78.0 Asymptomatic menopausal state (principal); M85.852 Other specified disorders of bone density and structure, left thigh; M85.851 Other specified disorders of bone density and structure, right thigh
CPT/HCPCS: 77080

== ENCOUNTER 2022-09-26 16:55 | Outpatient (CLI) | payer OTHER, SELFPAY ==
--- NOTE | ~2022-09-26 | XR_ITS ---
Thoracic spine: Clinical Indication: Back pain AP and lateral views were performed. No fracture is seen. There is normal alignment of the vertebrae. The intervertebral disc spaces appe ar normal. Paravertebral soft tissues appear normal. Impression: No significant abnormalities noted. Reviewed, dictated and finalized at [facility]. Impression: No significant abnormalities noted.
== END 2022-09-26 16:56 | disposition home or self-care (01) ==
LOC: ANHIMG 16:58
PROVIDERS: PCP Internal Medicine; Visit Provider Internal Medicine
DX: M54.9 Dorsalgia, unspecified (principal)
CPT/HCPCS: 72070

== ENCOUNTER → 2023-07-02 16:24 | Outpatient (CLI) | payer OTHER, SELFPAY ==
--- NOTE | ~2023-07-02 | MM_ITS ---
EXAMINATION: MM screening alan BI w john HISTORY: Screening mammogram TECHNIQUE: Craniocaudal and mediolateral oblique 3-D tomosynthesis images were obtained and synthetic 2-D images were generated. CAD analysis was submitted and interpreted. COMPARISON: 09/09/2021, 07/16/2020 bilateral screening mammogram examinations BREAST PARENCHYMAL COMPOSITION: There are scattered areas of fibroglandular density. FINDINGS: Scattered occasional benign calcifications are again noted, including benign-appearing calc ifications associated with a circumscribed approximately 4 x 7 mm opacity in the anterior lower outer right breast, in addition to similar but smaller approximately 2.4 x 4 mm circumscribed opacity with similar calcifications in the lower outer left breast, both consistent with benign partially calcifi ed fibroadenomas. There is no evidence of suspicious mass, calcification, or architectural distortion to suggest malign arlette in either breast. There has been no suspicious interval change. IMPRESSION: 1. Benign findings. No mammographic evidence of malignancy. 2. Recommend routine screening mammography in one year. BI-RADS Category 2: Benign finding(s) Reviewed, dictated and finalized at location A. H SALES [employer]IST
== END ==
PROVIDERS: PCP Nurse Practitioner; Visit Provider Nurse Practitioner
DX: Z12.31 Encounter for screening mammogram for malignant neoplasm of breast (principal)
CPT/HCPCS: 77063; 77067